=== PATIENT | female | born 1945 | race Caucasian/White ===

== ENCOUNTER → 2018-10-30 16:59 | Outpatient (CLI) | payer MEDICARE, SELFPAY ==
--- NOTE | 2018-10-30 | US_ITS ---
US urinary bladder CLINICAL INDICATION: ITS.REASON: URINARY FREQUENCY, URINARY RETENTION, BACK PAIN ORDERING PHYSICIAN: Faby Johns MD PATIENT AGE: 72 years Comparison: None FINDINGS: Measurements of the urinary bladder is 2.1 x 2.8 x 3.2 cm with volume of 10.2 mL. There is no irregularity of the urinary bladder lou. Post void measurements are 2.2 x 1.8 x 2.3 cm although the volume on the post void image is not indicated. Impression: See above report.
== END ==
PROVIDERS: PCP Family Medicine; Visit Provider Family Medicine
DX: M54.5 Low back pain (principal); R35.0 Frequency of micturition; R33.9 Retention of urine, unspecified
CPT/HCPCS: 76857

== ENCOUNTER → 2019-10-07 13:37 | Outpatient (CLI) | payer MEDICARE, SELFPAY ==
[2019-10-07 15:54] LABS: Coronavirus 19 IgG Antibody Negative (Negative); Coronavirus 19 IgM Antibody Negative (Negative)
== END ==
PROVIDERS: PCP Family Medicine; Visit Provider Family Medicine
DX: Z03.818 Encounter for observation for suspected exposure to other biological agents ruled out (principal)
CPT/HCPCS: 36415; 86328